=== PATIENT | female | born 1940 | race Caucasian/White ===

== ENCOUNTER → 2017-04-29 | Outpatient (CLI) | payer MEDICARE, BC | END | disposition home or self-care (01) | LOC: HKI 13:52 | DX: Z47.1 Aftercare following joint replacement surgery (principal); Z96.651 Presence of right artificial knee joint; M25.561 Pain in right knee ==

== ENCOUNTER → 2017-05-05 | Outpatient (CLI) | payer MEDICARE, BC | END | disposition home or self-care (01) | LOC: NUC 09:57 | DX: M25.561 Pain in right knee (principal) | CPT/HCPCS: 78315; A9503 ==

== ENCOUNTER → 2017-05-13 | Outpatient (CLI) | payer MEDICARE ==
[2017-05-13] MEDS: LIDOCAINE 1% (MDV) 10 ML INJ (11:15)
[2017-05-13 12:48] LABS: SYN FLD MN % 74.4 &; SYN FLD PMN % 25.6 % (0.0-25.0); SYN FLD WBC 1813 /cmm (0-150)
[2017-05-13 13:50] LABS: SYN FLD SOURCE RIGHT KNEE
[2017-05-13 13:50] LABS: SYN FLD CLARITY BLOODY
[2017-05-13 13:52] LABS: SYN FLD CRYSTALS NO CRYSTALS SEEN (None seen)
[2017-05-13 13:53] LABS: SYN FLD COLOR RED
== END | disposition home or self-care (01) ==
LOC: U/S 09:39
DX: M25.561 Pain in right knee (principal)
CPT/HCPCS: 20610; 87070; 87075; 89060

== ENCOUNTER → 2017-05-16 | Outpatient (CLI) | payer MEDICARE | END | disposition home or self-care (01) | LOC: HKI 10:35 | DX: M25.561 Pain in right knee (principal); M25.461 Effusion, right knee; Z96.651 Presence of right artificial knee joint ==

== ENCOUNTER → 2017-08-15 | Outpatient (CLI) | payer MEDICARE, BC | END | disposition home or self-care (01) | LOC: HKI 10:20 | DX: M25.561 Pain in right knee (principal); R22.41 Localized swelling, mass and lump, right lower limb | CPT/HCPCS: G0463 ==